=== PATIENT | female | born 1965 | race Caucasian/White ===

== ENCOUNTER 2019-02-19 11:41 | Day surgery (SDC) | payer BC ==
[~2019-02-19] VITALS: Ht 165.1 cm; Wt 113.4 kg
[2019-02-19] MEDS ORDERED: LOSARTAN (12:20)
[2019-02-19] MEDS ORDERED: LIPITOR (12:20)
[2019-02-19] MEDS ORDERED: METFORMIN (12:23)
[2019-02-19] MEDS ORDERED: CLONIDINE (12:23)
[2019-02-19] MEDS ORDERED: HYZAAR (12:23)
[2019-02-19 12:32] VITALS: Ht 165.1 cm; Wt 113.4 kg
[2019-02-19 13:28] VITALS: BP 134/63; PULSE 84; RESP 20
--- NOTE | 2019-02-19 15:12 | PREAC ---
Date/Time of Note Date/Time of Note DATE: 02/19/19 TIME: 15:11 Anesthesia Eval and Record Evaluation Time Pre-Procedure Interview DATE: 02/19/19 TIME: 15:11 Age 53 Sex female NPO: 8 hrs Preoperative diagnosis GERD Planned procedure EGD Past Medical History Past Medical History: Includes Cardio: HTN Endo: Diabetes Pulm: COPD, Asthma GI: Obesity Surgery & Anesthesia Issues No known issue Meds Anticoagulation: No Beta Hubert within 24 hr: No Reason Beta Hubert not given: Pt. not on B-Hubert Reported Medications [Clonidine] No Conflict Check 02/19/19 [Hyzaar] No Conflict Check 02/19/19 [Metformin] No Conflict Check 02/19/19 [Lipitor] No Conflict Check 02/19/19 [Losartan] No Conflict Check 02/19/19 Meds reviewed: Yes Allergies Coded Allergies: No Known Allergy (Unverified , 02/19/19) Allergies Reviewed: Yes Labs/Studies Labs Reviewed: Reviewed by anesthesiologist test: N/A Studies: ECG (n/a), CXR (n/a) Pre-procedure Exam Last vitals Vital Signs Date Temp Pulse Resp B/P (MAP) Pulse Ox O2 O2 Flow FiO2 Time Delivery Rate 02/19/19 98.5 84 20 134/63 94 Nasal 2.0 13:28 (86) Cannula Airway: Adequate mouth opening, Adequate thyromental dist Mallampati: Mallampati II Teeth: Normal Lung: Normal Heart: Normal ASA Physical Status ASA physical status: 3 Emergency: None Planned Anesthetic General/MAC: MAC Planned Pain Management Parenteral pain med Pre-operative Attestations Prior to commencing anesthesia and surgery, the patient was re-evaluated, there was verification of: *The patient's identity *The results of appropriate recent lab work and preoperative vital signs *The above evaluation not changing prior to induction *Anesthetic plan, risk benefits, alternative and complications discussed with patient/family; questions answered; patient/family understands, accepts and wishes to proceed. RD VELASCO MD February 19, 2019 15:12
--- NOTE | 2019-02-19 15:23 | PAC ---
Date/Time of Note Date/Time of Note DATE: 02/19/19 TIME: 15:23 Post-Anesthesia Notes Post-Anesthesia Note Last documented vital signs Vital Signs Date Temp Pulse Resp B/P (MAP) Pulse Ox O2 O2 Flow FiO2 Time Delivery Rate 02/19/19 98.5 84 20 134/63 94 Nasal 2.0 15:28 (86) Cannula Activity: WNL Respiratory function: WNL Cardiovascular function: WNL Mental status: Baseline Pain reasonably controlled: Yes Hydration appropriate: Yes Nausea/Vomiting absent: Yes RD VELASCO MD February 19, 2019 15:23
[2019-02-19 15:25] VITALS: BP 131/64; PULSE 82; RESP 18
[2019-02-19 15:30] VITALS: BP 148/61; PULSE 80; RESP 20
[2019-02-19] MEDS ORDERED: ONDANSETRON 4 MG INJ IV PRN (15:30)
[2019-02-19] MEDS ORDERED: hydrALAzine 20 MG INJ IV PRN (15:30)
[2019-02-19] MEDS ORDERED: EPHEDrine 25 MG/5 ML SYG IV PRN (15:30)
[2019-02-19] MEDS ORDERED: HYDROmorphONE 1 MG/5 ML IV SYRINGE IV PRN (15:30)
[2019-02-19] MEDS ORDERED: FENTAnyl 50 MCG/ML VIAL IV PRN (15:30)
[2019-02-19] MEDS ORDERED: LABETALOL HCL 20MG INJ IV PRN (15:30)
[2019-02-19 15:50] VITALS: BP 165/70; PULSE 85; RESP 19
[2019-02-19] MEDS ORDERED: PROPOFOL 20 ML ONE (15:52)
== END 2019-02-19 16:00 | disposition home or self-care (01) ==
LOC: GIL 11:41
PROVIDERS: ATTEND Internal Medicine Gastroenterology
DX: K44.9 Diaphragmatic hernia without obstruction or gangrene (principal); K29.00 Acute gastritis without bleeding; E11.9 Type 2 diabetes mellitus without complications; I10 Essential (primary) hypertension; J44.9 Chronic obstructive pulmonary disease, unspecified; Z79.84 Long term (current) use of oral hypoglycemic drugs
CPT/HCPCS: 43239; 82962; 88305; Z7610